=== PATIENT | female | born 1995 | race Caucasian/White ===

== ENCOUNTER 2018-06-04 08:19 | Emergency (ER) | payer BC ==
[2018-06-04 08:53] VITALS: BP 119/71
[2018-06-04 09:32] LABS: Influenza A Molecular NEGATIVE (Negative); Influenza B Molecular NEGATIVE (Negative)
[2018-06-04] MEDS ORDERED: Ondansetron ODT TAB* 4 MG PO ONE (10:24)
[2018-06-04] MEDS ORDERED: Acetaminophen TAB* 325 MG PO ONE (10:24)
--- NOTE | 2018-06-04 10:28 | UC ---
Nausea/Vomiting/Diarrhea HPI - HPI Summary HPI Summary: 22-year-old woman comes in today with a chief complaint of feeling ill. 2 days ago she started with nausea vomiting diarrhea fevers and body aches. She stopped throwing up 2 days ago the diarrhea has continued. She continues to be nauseous and has had limited by mouth intake. Denies any abdominal pain. Has been having body aches. Minimal rhinorrhea no sore throat. No cough or chest congestion. The diarrhea is watery. She has had some blood in the diarrhea. She reports a small amount of blood in the diarrhea. She feels lightheaded when she stands up. Her mouth feels Dry. Patient reports that she's had blood in her stool for about a month now. It's bright red blood and she'll have normal brown formed stool with streaks of blood on it and in the water. Also when she wipes she'll have blood on the toilet paper. Otherwise feeling well no abdominal pain no fevers. Has not been feeling lightheaded until this illness in the last 2 days. She's not on any blood thinners. She does have some anal discomfort when having of bowel movement but then that goes away after the bowel movement is over. She has not palpated any external hemorrhoids. She started her period today. Denies any denies any dysuria or signs of urinary tract infection. - History of Current Complaint Chief Complaint: UCGeneralIllness Stated Complaint: VOMITING,CHILLS Time Seen by Provider: 06/04/18 10:06 Hx Last Menstrual Period: "I think I just got it today ... spotting" Pain Intensity: 0 - Allergies/Home Medications Allergies/Adverse Reactions: Allergies Allergy/AdvReac Type Severity Reaction Status Date / Time No Known Allergies Allergy Verified 06/04/18 08:48 Home Medications: Home Medications Cranberry Fruit Concentrate [Azo Cranberry] 250 mg PO DAILY PRN 06/04/18 [ History Confirmed 06/04/18] Phenazopyridine TAB* [Pyridium 100 mg TAB*] 100 mg PO ONCE 06/04/18 [History Confirmed 06/04/18] Venlafaxine ER (NF) [Effexor ER (NF)] 150 mg PO DAILY 06/04/18 [History Confirmed 06/04/18] PMH/Surg Hx/FS Hx/Imm Hx Previously Healthy: Yes - Surgical History Surgical History: None - Family History Known Family History: Positive: Non-Contributory - Social History Alcohol Use: None Substance Use Type: None Smoking Status (MU): Current Every Day Smoker Type: eCigarettes Amount Used/How Often: three times daily Length of Time of Smoking/Using Tobacco: Since Age 18 Review of Systems All Other Systems Reviewed And Are Negative: Yes Constitutional: Positive: Chills Skin: Positive: Negative Eyes: Positive: Negative ENT: Positive: Other - ORAL MUCOSA FEELS DRY Respiratory: Positive: Negative Cardiovascular: Positive: Negative Gastrointestinal: Positive: Vomiting, Diarrhea, Nausea. Negative: Abdominal Pain Genitourinary: Positive: Negative. Negative: Dysuria, Hematuria, Frequency, Urgency Motor: Positive: Negative Neurovascular: Positive: Negative Musculoskeletal: Positive: Myalgia Neurological: Positive: Negative Psychological: Positive: Negative Is Patient Immunocompromised?: No Physical Exam Triage Information Reviewed: Yes Appearance: No Pain Distress, Well-Nourished, Ill-Appearing - MILD Vital Signs: Initial Vital Signs Temp 98.5 F 06/04/18 08:46 Pulse 95 06/04/18 08:46 Resp 22 06/04/18 08:46 BP 119/71 06/04/18 08:46 Pulse Ox 100 06/04/18 08:46 Vital Signs Reviewed: Yes Eye Exam: Normal Eyes: Positive: Conjunctiva Clear ENT: Positive: TMs normal, Other - ORAL MUCOSA DRY. Negative: Pharyngeal erythema, Nasal congestion, Nasal drainage Neck exam: Normal Neck: Positive: Supple Respiratory: Positive: Lungs clear, Normal breath sounds, No respiratory distress Cardiovascular: Positive: RRR Abdomen Description: Positive: Nontender, Soft. Negative: CVA Tenderness (R), CVA Tenderness (L) Musculoskeletal Exam: Normal Musculoskeletal: Positive: Strength Intact, ROM Intact Neurological Exam: Normal Neurological: Positive: Alert, Muscle Tone Normal Psychological Exam: Normal Psychological: Positive: Age Appropriate Behavior Skin Exam: Normal Naus/Vom/Diarrhea Course/Dx - Course Course Of Treatment: I discussed the lab results with the patient. Patient started her period today and some blood in the urine she denies any signs of urinary tract infection. Patient's been having small amount of blood in her stool for about a month and it sounds like blood is present now is a continuation of that. Patient reports it's bright red and then there is some anal discomfort during a bowel movement makes me think she has an internal hemorrhoid. Without any abdominal pain at this time were not going to do CT scan. With the volume of blood being small the plan is to have her follow-up with primary care doctor for the blood in her stool. Today with a prescription for Zofran to be used to help the nausea. Overall patient will start by mouth intake and use acetaminophen as needed for body aches. I let the patient know that if she gets more dehydrated she has any abdominal pain fevers more blood in her stool she gets worse she needs to get reevaluated in the emergency department. - Differential Dx/Diagnosis Provider Diagnosis: Dehydration, Nausea vomiting and diarrhea, Blood in stool Condition At Discharge: Stable Discharge - Sign-Out/Discharge Documenting (check all that apply): Patient Departure All imaging exams completed and their final reports reviewed: No Studies - Discharge Plan Condition: Stable Disposition: HOME Prescriptions: Ondansetron ODT TAB* [Zofran 4 MG Odt TAB*] 4 mg PO Q6H PRN #10 tab.odt PRN Reason: Nausea Patient Education Materials: Gastrointestinal Bleeding (ED), Dehydration (ED), Acute Nausea and Vomiting (ED), Acute Diarrhea (ED) Forms: *Work Release Referrals: Esther Dinh NP [Primary Care Provider] - Additional Instructions: FOLLOW UP WITH YOUR PRIMARY CARE DOCTOR FOR YOUR PRSENT ILLNESS AND FURTHER EVALUATION OF THE BLOOD IN YOUR STOOL. GET RECHECKED SOONER WITH ANY WORSENING OF YOUR CONDITION OR QUESTIONS OR CONCERNS. - Billing Disposition and Condition Condition: STABLE Disposition: Home
== END 2018-06-04 10:32 | disposition home or self-care (01) ==
LOC: UCCORT 08:19
DX: R11.2 Nausea with vomiting, unspecified (principal); E86.0 Dehydration; R19.7 Diarrhea, unspecified; R50.9 Fever, unspecified; R52 Pain, unspecified; F17.290 Nicotine dependence, other tobacco product, uncomplicated; K92.1 Melena
CPT/HCPCS: 81003; 84702; 87086; 99202; A9270-GY; G0463

== ENCOUNTER 2018-10-15 12:03 | Emergency (ER) | payer BC ==
[2018-10-15 12:47] VITALS: BP 102/70
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
== END 2018-10-15 13:30 | disposition home or self-care (01) ==
LOC: UCCORT 12:03
DX: M54.5 Low back pain (principal); M51.36 Other intervertebral disc degeneration, lumbar region; F17.290 Nicotine dependence, other tobacco product, uncomplicated
CPT/HCPCS: 99212; G0463

== ENCOUNTER 2019-03-13 14:17 | Emergency (ER) | payer BC ==
[2019-03-13] MEDS ORDERED: Morphine 10 MG/ML VIAL (1 ml) IV ONE (14:21)
--- NOTE | 2019-03-13 14:22 | UC ---
Abdominal Pain Female HPI - HPI Summary HPI Summary: patient has had rlq pain for 2-3 days today after eating it got acutely worse-- patient has not vomited--patient has a history of chronic pain and this feels different than her usual pain - History of Current Complaint Chief Complaint: UCAbdominalPain Stated Complaint: GROIN PAIN Time Seen by Provider: 03/13/19 14:19 Hx Obtained From: Patient Hx Last Menstrual Period: 09/27/18 ?: No Onset/Duration: Gradual Onset, Lasting Days - 2-3, Worse Since - past 1 hour Timing: Constant Location: Discrete At: RLQ Radiates: No Character: Unable to describe Aggravating Factor(s): Food, Movement Alleviating Factor(s): Nothing Associated Signs and Symptoms: Positive: Negative Allergies/Adverse Reactions: Allergies Allergy/AdvReac Type Severity Reaction Status Date / Time No Known Allergies Allergy Verified 03/13/19 14:30 Home Medications: Home Medications Meloxicam 7.5 mg PO BID PRN 03/13/19 [History Confirmed 03/13/19] busPIRone TAB* [Buspar TAB *] 15 mg PO DAILY 03/13/19 [History Confirmed ] PMH/Surg Hx/FS Hx/Imm Hx Previously Healthy: No - Chronic pain - Surgical History Surgical History: None - Family History Known Family History: Positive: Hypertension, Other - DDD, Non-Contributory - Social History Occupation: Unemployed Lives: With Family Alcohol Use: None Substance Use Type: Marijuana - has a medical cannabis card Substance Use Comment - Amount & Last Used: "I just didn't find it helping." Smoking Status (MU): Never Smoked Tobacco Type: eCigarettes Amount Used/How Often: three times daily Length of Time of Smoking/Using Tobacco: Since Age 18 Review of Systems All Other Systems Reviewed And Are Negative: Yes Constitutional: Positive: Negative Skin: Positive: Negative Eyes: Positive: Negative ENT: Positive: Negative Respiratory: Positive: Negative Cardiovascular: Positive: Negative Gastrointestinal: Positive: Abdominal Pain Genitourinary: Positive: Negative Motor: Positive: Negative Neurovascular: Positive: Negative Musculoskeletal: Positive: Negative Neurological: Positive: Negative Psychological: Positive: Negative Is Patient Immunocompromised?: No Physical Exam Triage Information Reviewed: Yes Appearance: Well-Appearing, Well-Nourished, Pain Distress Vital Signs Reviewed: Yes Eye Exam: Normal Eyes: Positive: Conjunctiva Clear ENT Exam: Normal ENT: Positive: Normal ENT inspection, Hearing grossly normal. Negative: Trismus , Muffled voice, Hoarse voice Dental Exam: Normal Neck exam: Normal Neck: Positive: Supple, Nontender Respiratory Exam: Normal Respiratory: Positive: Chest non-tender, Lungs clear, Normal breath sounds, No respiratory distress, No accessory muscle use Cardiovascular Exam: Normal Cardiovascular: Positive: RRR, No Murmur, Pulses Normal, Brisk Capillary Refill Abdominal Exam: Other Abdomen Description: Positive: No Organomegaly, Soft, Guarding, McBurney's Point Tenderness. Negative: Nontender, CVA Tenderness (R), CVA Tenderness (L), Distended, Peritoneal Signs Bowel Sounds: Positive: Present Musculoskeletal Exam: Normal Musculoskeletal: Positive: Strength Intact, ROM Intact, No Edema Neurological Exam: Normal Neurological: Positive: Alert, Muscle Tone Normal Psychological Exam: Normal Skin Exam: Normal Abd Pain Female Course/Dx - Course Course Of Treatment: ivf, morphine and zofran transfer patient by EMS to hospital for further assessment of symptoms - Differential Dx/Diagnosis Provider Diagnosis: Abdominal pain, RLQ Discharge ED - Sign-Out/Discharge Documenting (check all that apply): Patient Departure All imaging exams completed and their final reports reviewed: No Studies - Discharge Plan Condition: Fair Disposition: TRANS HIGHER LVL OF CARE FAC Referrals: No Primary Care Phys,NOPCP [Primary Care Provider] - - Billing Disposition and Condition Condition: FAIR Disposition: Trans Higher Lvl of Care Fac
[2019-03-13 14:28] VITALS: BP 130/86
[2019-03-13] MEDS ORDERED: NS 0.9% 1000 ML** 1,000 ML IV SCH (14:30)
[2019-03-13] MEDS ORDERED: Ondansetron INJ* 2 MG/ML VIAL IV ONE (14:38)
== END 2019-03-13 14:48 | disposition short-term general hospital (02) ==
LOC: UCEAST 14:17
DX: R10.31 Right lower quadrant pain (principal); G89.29 Other chronic pain
CPT/HCPCS: 96360; 96374; 96375; 99213; G0463; J2270; J2405

== ENCOUNTER 2019-03-13 15:04 | Emergency (ER) | payer BC ==
--- NOTE | 2019-03-13 15:34 | ED ---
Abdominal Pain/Female - HPI Summary HPI Summary: Patient is a 23 y/o F presenting to [facility] via EMS with chief complaint of RLQ pain. She states that the pain first onset around two days ago. Initial pain is described as a pressure and she had attributed this pain to her menstrual cycle. Today, 03/13/19, while patient was shopping with her mother, she had an exacerbation of her pain. This pain is described as a stabbing sensation and the "worst pain I ever experienced". Nausea is endorsed as well. Patient was evaluated at [facility] where she received fluids, 2 mg morphine and 4 mg Zofran. She was then sent to [facility] for imaging. She notes that she was able to have lunch today before the exacerbation of pain. PMHx of chronic back pain is noted. She states that she had an MRI of her back but has not been followed up on after this imaging. On triage, pain is rated 7/10, nothing is noted to aggravate/alleviate Sx. Home medications and allergies are reviewed. - History of Current Complaint Chief Complaint: EDAbdPain Stated Complaint: LOWER RT ABD PAIN PER EMS Time Seen by Provider: 03/13/19 15:22 Hx Obtained From: Patient Hx Last Menstrual Period: 09/27/18 Onset/Duration: Lasting Days, Still Present, Worse Since Timing: Days Severity Initially: Mild Severity Currently: Severe Pain Intensity: 7 Pain Scale Used: 0-10 Numeric Location: Discrete At: RLQ Aggravating Factor(s): Nothing Alleviating Factor(s): Nothing Associated Signs and Symptoms: Positive: Back Pain - chronic, Nausea Allergies/Adverse Reactions: Allergies Allergy/AdvReac Type Severity Reaction Status Date / Time No Known Allergies Allergy Verified 03/13/19 14:30 PMH/Surg Hx/FS Hx/Imm Hx Musculoskeletal History: Reports: Other Musculoskeletal History - Hx of chronic back pain Sensory History: Denies: Hx Legally Blind, Hx Deafness Opthamlomology History: Denies: Hx Legally Blind EENT History: Denies: Hx Deafness Infectious Disease History: No Infectious Disease History: Denies: Traveled Outside the [place] in Last 30 Days - Family History Known Family History: Positive: Hypertension, Other - DDD - Social History Alcohol Use: None Substance Use Type: Reports: Marijuana Substance Use Comment - Amount & Last Used: medical marijuana, CBD Smoking Status (MU): Never Smoked Tobacco Type: eCigarettes Amount Used/How Often: three times daily Length of Time of Smoking/Using Tobacco: Since Age 18 Review of Systems Positive: Abdominal Pain, Nausea Musculoskeletal: Other - positive - chronic back pain All Other Systems Reviewed And Are Negative: Yes Physical Exam - Summary Physical Exam Summary: Appearance: The patient is well-nourished in no acute distress and in no acute pain. Skin: The skin is warm and dry, and skin color reflects adequate perfusion. HEENT: The head is normocephalic and atraumatic. The pupils are equal and reactive. The conjunctivae are clear and without drainage. Nares are patent and without drainage. Mouth reveals moist mucous membranes, and the throat is without erythema and exudate. The external ears are intact. The ear canals are patent and without drainage. The tympanic membranes are intact. Neck: The neck is supple with full range of motion and non-tender. There are no carotid bruits. There is no neck vein distension. Respiratory: Chest is non-tender. Lungs are clear to auscultation and breath sounds are symmetrical and equal. Cardiovascular: Heart is regular rate and rhythm. There is no murmur or rub auscultated. There is no peripheral edema and pulses are symmetrical and equal. Abdomen: The abdomen is soft. There is RLQ tenderness with no rebound noted. There are normal bowel sounds heard in all four quadrants and there is no organomegaly palpated. Musculoskeletal: At the right leg she has a straight leg raise test that is positive at five degrees. There is good capillary refill. There is no peripheral edema or calf tenderness elicited. Neurological: Patient is alert and oriented to person, place and time. The patient has symmetrical motor strength in all four extremities. Cranial nerves are grossly intact. Deep tendon reflexes are symmetrical and equal in all four extremities. Psychiatric: The patient has an appropriate affect and does not exhibit any anxiety or depression. Triage Information Reviewed: Yes Vital Signs On Initial Exam: Initial Vitals Temp Pulse Resp BP Pulse Ox 99.4 F 79 16 114/79 99 03/13/19 15:17 03/13/19 15:17 03/13/19 15:17 03/13/19 15:17 03/13/19 15:17 Vital Signs Reviewed: Yes Procedures - Sedation Patient Received Moderate/Deep Sedation with Procedure: No Diagnostics - Vital Signs Vital Signs Temp Pulse Resp BP Pulse Ox 03/13/19 15:17 99.4 F 79 16 114/79 99 - Laboratory Result Diagrams: 03/13/19 16:01 03/13/19 16:01 Lab Statement: Any lab studies that have been ordered have been reviewed, and results considered in the medical decision making process. - CT ABD/PEL CT CT Interpretation Completed By: Radiologist Summary of CT Findings: IMPRESSION: No visible renal, ureteral or bladder calculi. THIS REPORT WAS REVIEWED BY DR. AYERS. - Ultrasound APPENDIX US Ultrasound Interpretation Completed By: Radiologist Summary of Ultrasound Findings: IMPRESSION: THE APPENDIX IS NOT VISUALIZED. THERE IS NO FREE OR LOCULATED FLUID WITHIN THE RIGHT LOWER. QUADRANT. NORMAL RIGHT OVARY WITHOUT SONOGRAPHIC FEATURES OF TORSION. PLEASE NOTE THAT. PARTIAL OR INTERMITTENT TORSION MAY BE SONOGRAPHIC NORMAL. THIS REPORT WAS REVIEWED BY DR. AYERS. Re-Evaluation - Re-Evaluation First Eval Re-Evaluation Time: 17:50 Comment: US results and bloodwork were discussed. CT ABD/PEL to be done. Second Eval Re-Evaluation Time: 19:44 Comment: Patient is screaming in pain, says she has no relief in pain with morphine. Third Eval Re-Evaluation Time: 21:35 Comment: Patient is agreeable with discharge at this time. She will follow up with her PCP. Abdominal Pain Fem Course/Dx - Course Course Of Treatment: Ms. Hernandez has been having a great deal of difficulty with her low back. She's had a couple of MRIs, has been taking a maximum dose of meloxicam and she has been tried with a couple different muscle relaxers which did not apparently work. Today she was riding consciousness sudden severe right lower quadrant pain. She had had some mild right lower quadrant pain earlier today. She came in apparent pain distress but nontoxic in appearance with stable vitals. She was tender in the right lower quadrant. My initial concern was for an ovarian torsion or cyst although appendicitis was certainly in the differential. Ultrasound showed no torsion, cyst and although could not see the appendix there was no inflammatory change. Her labs are generally unremarkable but her urinalysis returned with white blood cells and red blood cells although no bacteria. CT was obtained to rule out a stone and showed a normal appendix and no stone. She is given pain medication here which did help her right lower quadrant pain however her back pain flared up. Ultimately this improved with ketorolac IV. I recommended that she have a temporary course of Ativan as a muscle relaxer. She is going to follow-up with her doctor this week for further evaluation of her back pain. Because of her urinalysis and then start her on Macrobid pending culture results. - Diagnoses Provider Diagnoses: Lower back pain, UTI (urinary tract infection) Discharge ED - Sign-Out/Discharge Documenting (check all that apply): Patient Departure - discharge - Discharge Plan Condition: Stable Disposition: HOME Prescriptions: LORazepam TAB(*) [Ativan TAB(*)] 1 mg PO Q6H PRN #20 tab MDD 4 PRN Reason: Pain Nitrofurantoin Monohyd/M-Cryst [Macrobid 100 mg Capsule] 100 mg PO BID #14 cap Ondansetron ODT TAB* [Zofran Odt TAB*] 4 mg PO Q6H PRN #20 tab.odt PRN Reason: Nausea/Vomiting Patient Education Materials: Urinary Tract Infection in Women (ED), Back Pain ( ED) Referrals: [facility] [Outside] Additional Instructions: PLEASE RETURN TO ED FOR ANY NEW OR CONCERNING SYMPTOMS. PLEASE FOLLOW UP WITH YOUR PRIMARY CARE PHYSICIAN WITHIN THREE DAYS. - Billing Disposition and Condition Condition: STABLE Disposition: Home - Attestation Statements Document Initiated by Manju: Yes Documenting Silveribe: RUI JOHNSON Provider For Whom Manju is Documenting (Include Credential): CARROLL AYERS MD Scribe Attestation: RUI Schwartz, scribed for CARROLL AYERS MD on 03/13/19 at 2143. Scribe Documentation Reviewed: Yes Provider Attestation: The documentation as recorded by the RUI bob accurately reflects the service I personally performed and the decisions made by me, CARROLL AYERS MD Status of Scribe Document: Viewed
[2019-03-13 16:13] LABS: ABS Monocytes 0.5 10^3/ul (0-0.8); ABS Neutrophils 3.1 10^3/ul (1.5-7.7); Hematocrit 34 % (35-47); Hemoglobin 11.3 g/dL (12.0-16.0); Lymphocyte % 22.1 %; Mean Corpuscular HGB Conc 34 g/dL (31-36); Mean Corpuscular Hemoglobin 31 pg (27-31); Mean Corpuscular Volume 93 fL (80-97); Mean Platelet Volume 8.4 fL (7.4-10.4); Nucleated Red Blood Cells % 0.1; Platelet Count 170 10^3/uL (150-450); Red Blood Count 3.64 10^6 /uL (3.70-4.87); Red Cell Distribution Width 12 % (10-15); White Blood Count 4.6 10^3/uL (3.5-10.8)
[2019-03-13 16:25] LABS: ALT 15 U/L (7-52); AST 15 U/L (13-39); Albumin 4.1 g/dL (3.2-5.2); Albumin/Globulin Ratio 1.8 (1-3); Alkaline Phosphatase 55 U/L (34-104); Anion Gap 4 mmol/L (2-11); BUN/Creatinine Ratio 23.9 (8-20); Blood Urea Nitrogen 16 mg/dL (6-24); C Reactive Protein < 1.00 mg/L (<8.01); CO2 Carbon Dioxide 25 mmol/L (22-32); Calcium 8.5 mg/dL (8.6-10.3); Chloride 111 mmol/L (101-111); EGFR Non-African American 109.1 (>60); Globulin 2.3 g/dL (2-4); Glucose 98 mg/dL (70-100); Potassium 3.4 mmol/L (3.5-5.0); Sodium 140 mmol/L (135-145); Total Protein 6.4 g/dL (6.4-8.9)
[2019-03-13 16:30] LABS: HCG Pregnancy < 0.60 mIU/mL
[2019-03-13 16:36] LABS: Urine Color Red
[2019-03-13] MEDS ORDERED: Morphine 4 MG/ML VIAL (1 ml) 4 MG/ML VIAL IV ONE (16:41)
[2019-03-13 16:49] LABS: Urine Appearance Turbid; Urine Bacteria Absent (Absent); Urine Bilirubin Negative (Negative); Urine Blood 3+ (Negative); Urine Glucose 1+(50 mg/dL) (Negative); Urine Ketones Trace (Negative); Urine Nitrite Negative (Negative); Urine Protein 2+(100 mg/dL) (Negative); Urine Red Blood Cell 3+(>10/hpf) (Absent); Urine Specific Gravity 1.019 (1.010-1.030); Urine Urobilinogen Negative (Negative); Urine White Blood Cell 3+(>20/hpf) (Absent)
[2019-03-13] MEDS ORDERED: HYDROmorphone INJ* 0.5 MG/0.5 ML SYRINGE IV ONE (19:45)
[2019-03-13] MEDS ORDERED: Ondansetron INJ* 2 MG/ML VIAL IV ONE (20:24)
[2019-03-13] MEDS ORDERED: Ketorolac INJ* 30 MG/ML 1 ML VIAL IV PUSH ONE (20:54)
[2019-03-13] MEDS ORDERED: PROCHLORPERAZINE INJ 5 MG/ML 2 ML VIAL IV PRN (20:54)
[2019-03-13] MEDS ORDERED: diPHENhydraMINE PO* 50 MG PO ONE (21:59)
[2019-03-13 22:18] VITALS: BP 114/65
[2019-03-13] MEDS ORDERED: Ondansetron ODT TAB* 4 MG SL ONE (22:22)
== END 2019-03-13 22:15 | disposition home or self-care (01) ==
LOC: ED 15:04
DX: N39.0 Urinary tract infection, site not specified (principal); M54.5 Low back pain
CPT/HCPCS: 36415; 74176; 76705; 80053; 81003; 81015; 83605; 84702; 85025; 86140; 87086; 96374; 96375; 99283; A9270-GY; J1170; J1885; J2270; J2405